=== PATIENT | female | born 1970 | race African-American/Black ===

== ENCOUNTER 2016-12-02 11:19 | Emergency (ER) | payer OTHER ==
[2016-12-02 11:28] VITALS: BP 122/82; PULSE 75; TEMP 98.6; BMI 34.4
--- NOTE | 2016-12-02 12:37 | PDOC ---
History of Present Illness - General Chief Complaint: Allergic Reaction Stated Complaint: ALLERGIES/FOOT INJURY Time Seen by Provider: 12/02/16 12:22 History Source: Patient Exam Limitations: No Limitations - History of Present Illness Initial Comments: 12/02/16 12:31 46 yr female with history of asthma, seasonal allergies presents to ER c/o scratchy throat itchy ears, itchy eyes and asking for a refferal for a drawer in for her bone spur in her right ankle. Severity: mild Past History - Past Medical History Allergies/Adverse Reactions: Allergies Allergy/AdvReac Type Severity Reaction Status Date / Time erythromycin base Allergy Intermediate Hives Verified 12/02/16 11:25 [Erythromycin Base] JACOB, MELON Allergy Severe ITCHY Uncoded 12/02/16 11:25 THROAT. Home Medications: Ambulatory Orders Albuterol Sulfate Inhaler - [Ventolin Hfa Inhaler -] 1 - 2 inh PO Q4H #1 inhaler 05/05/15 Nifedipine 30 mg PO DAILY 02/17/16 Tamoxifen Citrate 20 mg PO DAILY 02/17/16 Cetirizine HCl [Zyrtec -] 10 mg PO DAILY 12/02/16 Cetirizine HCl [Zyrtec -] 10 mg PO DAILY #30 tablet 12/02/16 Olopatadine HCl [Patanol] 1 drop OP DAILY #1 bottle 12/02/16 Asthma: Yes Cancer: Yes (right breast ca) HTN: Yes Psychiatric Problems: Yes (ANXIETY) Suicide Attempt (Hx): No Thyroid Disease: Yes (hyper) - Surgical History Abdominal Surgery: Yes - Immunization History Immunization Up to Date: No - Psycho/Social/Smoking Cessation Hx Anxiety: Yes Suicidal Ideation: No Smoking Status: No Smoking History: Never smoked Number of Cigarettes Smoked Daily: 0 Hx Alcohol Use: No Drug/Substance Use Hx: No Substance Use Type: None Review of Systems - Review of Systems Able to Perform ROS?: Yes Is the patient limited [place] proficient: No Constitutional: No: Symptoms Reported HEENTM: Yes: Symptoms Reported Respiratory: Yes: Symptoms reported, Cough (dry ) Cardiac (ROS): No: Symptoms Reported ABD/GI: No: Symptoms Reported Musculoskeletal: Yes: Symptoms Reported, Other (bone spur pain left ankle ) *Physical Exam - Vital Signs Last Vital Signs Temp Pulse Resp BP Pulse Ox 98.6 F 75 18 122/82 98 12/02/16 11:25 12/02/16 11:25 12/02/16 11:25 12/02/16 11:25 12/02/16 11:25 - Physical Exam General Appearance: Yes: Nourished, Appropriately Dressed HEENT: positive: EOMI, SAÚL, Normal ENT Inspection, TMs Normal, Pharynx Normal Neck: positive: Supple. negative: Tender Respiratory/Chest: positive: Lungs Clear, Normal Breath Sounds. negative: Chest Tender, Wheezing Cardiovascular: positive: Regular Rhythm, Regular Rate Gastrointestinal/Abdominal: positive: Normal Bowel Sounds, Soft Musculoskeletal: positive: Normal Inspection Extremity: positive: Normal Capillary Refill, Normal Inspection, Normal Range of Motion, Tender (left medial malleolus ) Integumentary: positive: Normal Color, Dry, Warm Neurologic: positive: Fully Oriented, Alert, Normal Mood/Affect, Normal Response , Motor Strength 5/5 Medical Decision Making - Medical Decision Making 12/02/16 12:33 cc: seasonal allergies bone spur left ankle vitals stable no fever *DC/Admit/Observation/Transfer Diagnosis at time of Disposition: Bone spur of ankle Seasonal allergies Qualifiers: Allergic rhinitis trigger: pollen Qualified Code(s): J30.1 - Allergic rhinitis due to pollen - Discharge Dispostion Disposition: HOME Condition at time of disposition: Good - Prescriptions Prescriptions: Olopatadine HCl [Patanol] 1 drop OP DAILY #1 bottle Cetirizine HCl [Zyrtec -] 10 mg PO DAILY #30 tablet - Referrals Referrals: Lisandro Martínez MD [Staff Physician] - - Patient Instructions Additional Instructions: take the medication as prescribed follow with ENT allergy for follow up and possible allergy shots that can help with symptoms follow with the poditrist for your bone spur
== END 2016-12-02 12:52 | disposition home or self-care (01) ==
LOC: JERFT 11:19
DX: J30.1 Allergic rhinitis due to pollen (principal); J45.909 Unspecified asthma, uncomplicated; I10 Essential (primary) hypertension; F41.9 Anxiety disorder, unspecified; Z85.3 Personal history of malignant neoplasm of breast
CPT/HCPCS: 99281-25

== ENCOUNTER 2017-11-20 09:17 | Emergency (ER) | payer OTHER ==
[2017-11-20 09:29] VITALS: BP 125/72; PULSE 82; TEMP 98.2; BMI 35.2
--- NOTE | 2017-11-20 09:38 | PDOC ---
History of Present Illness - General Chief Complaint: Asthma Stated Complaint: SOB (ASTHMA) Time Seen by Provider: 11/20/17 09:37 History Source: Patient Exam Limitations: No Limitations - History of Present Illness Initial Comments: 11/20/17 11:07 Patient is an 47-year-old female past medical history of asthma, who presents to emergency department today stating that she has been wheezing recently. She is using her inhaler 3-4 times a day which is more than his usual. She has never been hospitalized or intubated for his asthma. Admits to cough Denies fevers, chills, chest pain, shortness of breath at rest, nausea, vomiting and diarrhea. States they are currently in an apartment were renovations are being done. Past History - Travel Traveled outside of the country in the last 30 days: No Close contact w/someone who was outside of country & ill: No - Past Medical History Allergies/Adverse Reactions: Allergies Allergy/AdvReac Type Severity Reaction Status Date / Time erythromycin base Allergy Intermediate Hives Verified 11/20/17 09:26 [Erythromycin Base] JACOB, MELON Allergy Severe ITCHY Uncoded 11/20/17 09:26 THROAT. Home Medications: Ambulatory Orders Albuterol 0.083% Nebulizer Bella [Ventolin 0.083% Nebulizer Soln -] 1 neb NEB Q4H #20 vial 11/20/17 predniSONE [Deltasone -] 40 mg PO DAILY #8 tablet 11/20/17 Asthma: Yes Cancer: Yes (right breast ca) COPD: No HTN: Yes Psychiatric Problems: Yes (ANXIETY) Thyroid Disease: Yes (hyper) - Surgical History Abdominal Surgery: Yes - Immunization History Immunization Up to Date: No - Suicide/Smoking/Psychosocial Hx Smoking Status: No Smoking History: Never smoked Number of Cigarettes Smoked Daily: 0 Hx Alcohol Use: No Drug/Substance Use Hx: No Substance Use Type: None Review of Systems - Review of Systems Able to Perform ROS?: Yes Comments:: 11/20/17 09:38 CONSTITUTIONAL: Absent: fever, chills, diaphoresis, generalized weakness, malaise, loss of appetite HEENT: Absent: rhinorrhea, nasal congestion, throat pain, throat swelling, difficulty swallowing, mouth swelling, ear pain, eye pain, visual Changes CARDIOVASCULAR: Absent: chest pain, loss of consciousness, palpitations, irregular heart rate, peripheral edema RESPIRATORY: Present: cough, wheezing Absent: shortness of breath, dyspnea with exertion, orthopnea, stridor, hemoptysis GASTROINTESTINAL: Absent: abdominal pain, abdominal distension, nausea, vomiting, diarrhea, constipation, melena, hematochezia GENITOURINARY: Absent: dysuria, frequency, urgency, hesitancy, hematuria, flank pain, genital pain MUSCULOSKELETAL: Absent: myalgia, arthralgia, joint swelling SKIN: Absent: rash, itching, pallor HEMATOLOGIC/IMMUNOLOGIC: Absent: easy bleeding, easy bruising, lymphadenopathy, frequent infections ENDOCRINE: Absent: unexplained weight gain, unexplained weight loss, heat intolerance, cold intolerance NEUROLOGIC: Absent: headache, focal weakness or paresthesias, dizziness, unsteady gait, seizure, mental status changes, bladder or bowel incontinence PSYCHIATRIC: Absent: anxiety, depression, suicidal or homicidal ideation, hallucinations. Is the patient limited British proficient: No *Physical Exam - Vital Signs Last Vital Signs Temp Pulse Resp BP Pulse Ox 98.2 F 82 19 125/72 96 11/20/17 09:26 11/20/17 09:26 11/20/17 09:26 11/20/17 09:26 11/20/17 09:26 - Physical Exam Comments: 11/20/17 09:38 GENERAL: Well developed, well nourished. Awake and alert. No acute distress. HEENT: Normocephalic, atraumatic. PERRLA, EOMI. No conjunctival pallor. Sclera are non- icteric. Moist mucous membranes. Oropharynx is clear. NECK: Supple. Full ROM. No JVD. Carotid pulses 2+ and symmetric, without bruits. No thyromegaly. No lymphadenopathy. CARDIOVASCULAR: Regular rate and rhythm. No murmurs, rubs, or gallops. Distal pulses are 2+ and symmetric. PULMONARY: No evidence of respiratory distress. Lungs clear to auscultation bilaterally with fair aeration to the bases. Dry cough present on respiration. No wheezing, rales or rhonchi. SKIN: Warm and dry. Normal capillary refill. No rashes. No jaundice. NEUROLOGICAL: Alert, awake, appropriate. Cranial nerves 2-12 intact. No deficits to light touch and temperature in face, upper extremities and lower extremities. No motor deficits in the in face, upper extremities and lower extremities. Normoreflexic in the upper and lower extremities. Normal speech. Toes are down- going bilaterally. Gait is normal without ataxia. PSYCHIATRIC: Cooperative. Good eye contact. Appropriate mood and affect. Medical Decision Making - Medical Decision Making 11/20/17 11:09 Patient is a 47-year-old female past medical history of asthma, who presents for increased wheezing and cough. Patient given prednisone and DuoNeb in the emergency department with relief of her symptoms. Repeat lung sounds now with good aeration to the bases. Patient spoke with social group worker regarding the renovations being done around her apartment. We'll discharge home at this time. Return precautions given. Patient understands all discharge instructions and all questions were answered. *DC/Admit/Observation/Transfer Diagnosis at time of Disposition: Asthma Qualifiers: Asthma severity: mild Asthma persistence: intermittent Asthma complication type : with acute exacerbation Qualified Code(s): J45.21 - Mild intermittent asthma with (acute) exacerbation - Discharge Dispostion Disposition: HOME Condition at time of disposition: Stable Admit: No - Prescriptions Prescriptions: Albuterol 0.083% Nebulizer Bella [Ventolin 0.083% Nebulizer Soln -] 1 neb NEB Q4H #20 vial predniSONE [Deltasone -] 40 mg PO DAILY #8 tablet - Referrals Referrals: Reji Tyler MD [Primary Care Provider] - Ramiro Reid MD [Staff Physician] - - Patient Instructions Printed Discharge Instructions: DI for Asthma -- Adult Additional Instructions: Please use either his inhaler or the nebulizer every 4 hours until his symptoms resolve. Please take the steroids 40 mg daily for 4 days starting tomorrow. Air purifier's and humidifiers may help with his symptoms. Please follow-up with your primary care provider this week. Return to the emergency department if he has difficulty breathing, shortness of breath, increased wheezing, fevers, or have any changes in his symptoms. - Post Discharge Activity Forms/Work/School Notes: Back to Work
[2017-11-20] MEDS ORDERED: ALBUTEROL SO4 2.5/IPRATROPIUM 0.5 INH SOL 3 ML VIAL.NEB. NEB ONE (10:02)
[2017-11-20] MEDS ORDERED: predniSONE 20 MG TABLET (UD) PO ONE (10:03)
[2017-11-20] MEDS ORDERED: predniSONE 20 MG TABLET (UD) ONE (10:27)
== END 2017-11-20 11:20 | disposition home or self-care (01) ==
LOC: JERFT 09:17
PROC: 3E0F7GC Introduction of Other Therapeutic Substance into Respiratory Tract, Via Natural or Artificial Opening (ICD-10-PCS; principal; 2017-11-20)
DX: J45.21 Mild intermittent asthma with (acute) exacerbation (principal); J44.9 Chronic obstructive pulmonary disease, unspecified; E05.90 Thyrotoxicosis, unspecified without thyrotoxic crisis or storm; F41.9 Anxiety disorder, unspecified; Z85.3 Personal history of malignant neoplasm of breast
CPT/HCPCS: 94640; 99281-25

== ENCOUNTER 2017-11-27 04:48 | Emergency (ER) | payer OTHER ==
--- NOTE | 2017-11-27 04:58 | PDOC ---
History of Present Illness - General Stated Complaint: DIFFICULTY BREATHING Time Seen by Provider: 11/27/17 04:55 History Source: Patient - History of Present Illness Initial Comments: 11/27/17 05:21 Patient is a 47 year old female with a PMH of Breast CA (s/p resection), HTN Asthma (no hospitalizations/intubations) presents to our ED c/o 2 day h/o dyspnea without chest pain. Endorses non-productive cough and chills, denies fevers. No recorded temperature. Patient denies abdominal pain, nausea/vomiting, diarrhea/constipation, dysuria/ hematuria, recent travel. Allergy: Erythromycin Surgical: R breast resection PMD: Dr. Tyler Past History - Past Medical History Allergies/Adverse Reactions: Allergies Allergy/AdvReac Type Severity Reaction Status Date / Time erythromycin base Allergy Intermediate Hives Verified 11/27/17 05:01 [Erythromycin Base] JACOB, MELON Allergy Severe ITCHY Uncoded 11/27/17 05:01 THROAT. Home Medications: Ambulatory Orders Albuterol 0.083% Nebulizer Bella [Ventolin 0.083% Nebulizer Soln -] 1 neb NEB Q4H #20 vial 11/20/17 predniSONE [Deltasone -] 40 mg PO DAILY #8 tablet 11/20/17 Asthma: Yes Cancer: Yes (right breast ca) COPD: No HTN: Yes Psychiatric Problems: Yes (ANXIETY) Thyroid Disease: Yes (hyper) - Surgical History Abdominal Surgery: Yes - Immunization History Immunization Up to Date: No - Suicide/Smoking/Psychosocial Hx Smoking Status: No Smoking History: Never smoked Number of Cigarettes Smoked Daily: 0 Hx Alcohol Use: No Drug/Substance Use Hx: No Substance Use Type: None Review of Systems - Review of Systems Constitutional: Yes: Chills. No: Fever HEENTM: No: Recent change in vision Respiratory: Yes: Cough, Shortness of Breath. No: Stridor Cardiac (ROS): No: Chest Pain, Lightheadedness, Palpitations, Syncope ABD/GI: No: Constipated, Diarrhea, Nausea, Vomiting : No: Burning, Dysuria *Physical Exam - Physical Exam General Appearance: Yes: Nourished, Obese HEENT: positive: EOMI Neck: positive: Trachea midline, Supple Respiratory/Chest: positive: Lungs Clear Cardiovascular: positive: S1, S2. negative: Edema, JVD, Murmur Gastrointestinal/Abdominal: negative: Distended, Guarding, Tenderness, Hernia, Mass Integumentary: positive: Normal Color, Dry, Warm Neurologic: positive: Fully Oriented, Alert Medical Decision Making - Medical Decision Making 11/27/17 05:25 47 year old female presents with non-productive cough. VS unremarkable. Respiratory, cardiac, abdominal exams benign. Evaluation w/son. Patient ambulatory, tolerating PO intake. Will discharge home with PMD follow-up. *DC/Admit/Observation/Transfer Diagnosis at time of Disposition: Cough - Discharge Dispostion Disposition: HOME Condition at time of disposition: Good - Referrals Referrals: Reji Tyler MD [Primary Care Provider] - - Patient Instructions Printed Discharge Instructions: DI for Cough -- Adult Additional Instructions: Return to the Emergency Department for any new/worsening/concerning symptoms. - Post Discharge Activity
[2017-11-27 05:08] VITALS: BP 117/63; PULSE 97; TEMP 98.5; BMI 34.7
--- NOTE | 2017-11-27 05:45 | PDOC ---
Attending Attestation - Resident Resident Name: Argelia Gates - ED Attending Attestation I have performed the following: I have examined & evaluated the patient, The case was reviewed & discussed with the resident, I agree w/resident's findings & plan, Exceptions are as noted - HPI HPI: 11/27/17 05:43 47y F hx of breast ca, asthma presents with nonproductive cough, w/o fevers, sore throat. mom notes there has been some construction near by and they have been having frequent coughs and this may be related. was recently treated in ED for same sypmtoms with improvement. here now because she wanted to be checked out as her son is also here for same symptoms. on exam pt well apperaing in n odistress pulm exam clear w/o wheezing/rales suspect uri will dc with supportive care returnprecuations were discussed - Physicial Exam PE: 11/27/17 06:00 see above - Medical Decision Making 11/27/17 06:00 see above
== END 2017-11-27 06:32 | disposition home or self-care (01) ==
LOC: JER 04:48
DX: R05 Cough (principal); I10 Essential (primary) hypertension; J45.909 Unspecified asthma, uncomplicated; F41.9 Anxiety disorder, unspecified; E05.90 Thyrotoxicosis, unspecified without thyrotoxic crisis or storm; Z85.3 Personal history of malignant neoplasm of breast
CPT/HCPCS: 99282-25

== ENCOUNTER 2018-01-25 06:56 | Emergency (ER) | payer OTHER ==
[2018-01-25 07:12] VITALS: BP 162/93; PULSE 68; TEMP 98; BMI 35.2
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
[2018-01-25] MEDS ORDERED: DIPHTH,PERTUSS(ACELL),TET 0.5 ML DISP.SYRIN IM ONE (08:18)
== END 2018-01-25 08:16 | disposition home or self-care (01) ==
LOC: JER 06:56
PROC: 3E0234Z Introduction of Serum, Toxoid and Vaccine into Muscle, Percutaneous Approach (ICD-10-PCS; principal; 2018-01-25)
DX: T24.211A Burn of second degree of right thigh, initial encounter (principal); X17.XXXA Contact with hot engines, machinery and tools, initial encounter; Y93.9 Activity, unspecified; Y92.003 Bedroom of unspecified non-institutional (private) residence as the place of occurrence of the external cause; F41.9 Anxiety disorder, unspecified; I10 Essential (primary) hypertension; E07.9 Disorder of thyroid, unspecified; Z85.3 Personal history of malignant neoplasm of breast
CPT/HCPCS: 90471; 90715; 99281-25

== ENCOUNTER 2018-04-17 20:09 | Emergency (ER) | payer OTHER ==
[2018-04-17 20:13] VITALS: BP 128/53; PULSE 96; TEMP 99.4; BMI 37.9
[2018-04-17 21:42] LABS: URINE APPEARANCE CLEAR; URINE BILIRUBIN NEGATIVE (<2.0 mg/dL); URINE COLOR YELLOW; URINE GLUCOSE (UA) NEGATIVE (NEGATIVE); URINE KETONE NEGATIVE (NEGATIVE); URINE LEUK ESTERASE NEGATIVE (NEGATIVE); URINE NITRITE NEGATIVE (NEGATIVE); URINE PROTEIN NEGATIVE (NEGATIVE); URINE UROBILINOGEN NEGATIVE mg/dL (0.2-1.0)
[2018-04-17 21:45] LABS: HCG,QUALITATIVE URINE Negative
--- NOTE | 2018-04-17 21:47 | PDOC ---
History of Present Illness - General Chief Complaint: Lightheaded Stated Complaint: DIZZY Time Seen by Provider: 04/17/18 21:10 History Source: Patient Exam Limitations: No Limitations - History of Present Illness Initial Comments: 04/17/18 21:41 HISTORY OF PRESENT ILLNESS: 47-year-old woman past medical history of hypertension, hypothyroidism, asthma, chronic back pain who is one week status post breast reconstruction and abdominoplasty who presents emergency Department with generalized weakness and lightheadedness starting today. Patient reports subjective fevers at home. Patient Tylenol No. 3 for pain and 1 g of Tylenol prior to arrival. Patient states she had an appointment for follow-up with Dr. Casillas today but missed the appointment due to symptoms. Patient denies headaches, chest pain, shortness of breath, abdominal pain, nausea, vomiting, diarrhea, constipation, dysuria, hematuria. No recent travel or sick contacts. PAST MEDICAL HISTORY: HTN, hypothyroidism, asthma, back pain SURGICAL HISTORY: breast reconstruction 04/11/18, abdominoplasty 04/11/18 ALLERGIES: No known drug allergies Breast surgeon: Dr. Lazo at [facility]- [phone] REVIEW OF SYSTEMS General/Constitutional: Denies fever or chills. Denies weakness, weight change. HEENT: Denies change in vision. Denies ear pain or discharge. Denies sore throat. Cardiovascular: Denies chest pain or shortness of breath. Respiratory: Denies cough, wheezing, or hemoptysis. Gastrointestinal: Denies nausea, vomiting, diarrhea or constipation. Denies rectal bleeding. Genitourinary: Denies dysuria, frequency, or change in urination. Musculoskeletal: Denies joint or muscle swelling or pain. Denies neck or back pain. Skin and breasts: Denies rash or easy bruising. Neurologic: Denies headache, vertigo, loss of consciousness, or loss of sensation. +lightheadedness Psychiatric: Denies depression or anxiety. Endocrine: Denies increased thirst. Denies abnormal weight change. Hematologic/Lymphatic: Denies anemia, easy bleeding, or history of blood clots. Allergic/Immunologic: Denies hives or skin allergy. Denies latex allergy. PHYSICAL EXAM General Appearance: Well-appearing, appropriately dressed. No apparent distress , no intoxication. HEENT: EOMI, PERRLA, normal ENT inspection, normal voice, TMs normal, pharynx normal. No conjunctival pallor. No photophobia, scleral icterus. Neck: Supple. Trachea midline. No tenderness, rigidity, carotid bruit, stridor , lymphadenopathy, or thyromegaly. Respiratory/Chest: Lungs CTAB. No shortness of breath, chest tenderness, respiratory distress, accessory muscle use. No crackles, rales, rhonchi, stridor , wheezing, dullness Cardiovascular: RRR. S1, S2. No JVD, murmur, bradycardia, tachycardia. Vascular Pulses: Dorsalis-Pedis (R): 2+, Dorsalis-Pedis (L): 2+ Gastrointestinal/Abdominal: Normal bowel sounds. Abdomen soft, non-distended. No tenderness or rebound tenderness. No organomegaly, pulsatile mass, guarding, hernia, hepatomegaly, splenomegaly. Lymphatic: No adenopathy, tenderness. Musculoskeletal/Extremities: Normal inspection. FROM of all extremities, normal capillary refill. Pelvis Stable. No CVA tenderness. No tenderness to extremities, pedal edema, swelling, erythema or deformity. Integumentary: right breast incisions c/d/i. No erythema or tenderness. Left breast incisions c/d/i. +tenderness and erythema to incision to underside of left breast. No drainage present. RUPERTO in place with scant serrous drainage. Abdominal incision c/d/i without erythema, discharge or drainage. 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 Fully oriented, alert. Appropriate mood/affect. Motor strength 5/5. No appreciable EOM palsy, facial droop or sensory deficit. 04/18/18 02:39 Past History - Past Medical History Allergies/Adverse Reactions: Allergies Allergy/AdvReac Type Severity Reaction Status Date / Time erythromycin base Allergy Intermediate Hives Verified 04/17/18 20:13 [Erythromycin Base] JACOB, MELON Allergy Severe ITCHY Uncoded 04/17/18 20:13 THROAT. Home Medications: Ambulatory Orders Albuterol 0.083% Nebulizer Bella [Ventolin 0.083% Nebulizer Soln -] 1 neb NEB Q4H #20 vial 11/20/17 Bacitracin - [Bacitracin Topical Ointment -] 1 applic TP BID 7 Days #1 tube Levofloxacin [Levaquin] 500 mg PO DAILY #7 tablet 04/21/18 Acetaminophen with Codeine [Tylenol with Codeine #3 Tablet] 1 each PO Q4H PRN Amlodipine Besylate 5 mg PO DAILY 04/30/18 Atenolol [Tenormin -] 50 mg PO DAILY 04/30/18 Levothyroxine Sodium [Synthroid] 100 mcg PO DAILY 04/30/18 Asthma: Yes Cancer: Yes (right breast ca) COPD: No HTN: Yes Psychiatric Problems: Yes (ANXIETY) Thyroid Disease: Yes (hyper) - Surgical History Abdominal Surgery: Yes - Immunization History Immunization Up to Date: No - Suicide/Smoking/Psychosocial Hx Smoking Status: No Smoking History: Never smoked Have you smoked in the past 12 months: No Number of Cigarettes Smoked Daily: 0 Hx Alcohol Use: No Drug/Substance Use Hx: No Substance Use Type: None *Physical Exam - Vital Signs Last Vital Signs Temp Pulse Resp BP Pulse Ox 99.4 F 96 H 18 128/53 97 04/17/18 20:12 04/17/18 20:12 04/17/18 20:12 04/17/18 20:12 04/17/18 20:12 ED Treatment Course - LABORATORY CBC & Chemistry Diagram: 04/17/18 22:15 04/17/18 22:15 Medical Decision Making - Medical Decision Making 04/17/18 21:47 A/P: 47-year-old woman with lightheadedness for 1 day Or vascular without erythema, lesions or exudates Lungs clear to auscultation bilaterally Abdomen soft nontender nondistended. Bikini line surgical incision is clean and dry and intact without tenderness, erythema or swelling Left breast incisions clean and dry and intact. No tenderness, erythema, swelling or discharge noted Right breast incisions clean and dry and intact. Erythema present to the lateral incision to the underside of the left breast. No discharge or drainage present RUPERTO with minimal drainage noted from left breast DDx infection, arrhythmia, PE although less likely as patient has not had any shortness of breath, chest pain or leg swelling, ACS Labs, EKG, chest x-ray, urine's, contact surgeon once testing is completed 04/17/18 23:34 Bilateral lower extremity ultrasound as read by imaging visual education director: No bilateral lower extremity DVT. Chest x-rays read by me: No focal consolidations or infiltrates present. Cardiomegaly present. Visualized osseous structures are intact. 04/18/18 01:00 Dr. Clifton morales. Awaiting callback at this time. 04/18/18 01:27 Dr. Clifton morales. Awaiting callback at this time. 04/18/18 01:48 Unable to contact the patient's plastic surgeon. I will discharge the patient home with prescription for Bactrim and instructions to follow up with her plastic surgeon as previously planned. Pt is in agreement with this plan. I discussed the physical exam findings, ancillary test results and final diagnoses with the patient. I answered all of the patient's questions. The patient was satisfied with the care received and felt comfortable with the discharge plan and treatment plan. The patient will call their primary care physician within 24 hours to arrange follow-up and will return to the Emergency Department with any new, persistent or worsening symptoms. 04/18/18 02:39 Patient's plastic surgeon called after discharge. I have added Silvadene to her prescriptions at his request. All results relayed to plastic surgeon who agrees with current plan and will follow up with patient in the office. *DC/Admit/Observation/Transfer Diagnosis at time of Disposition: Cellulitis Qualifiers: Site of cellulitis: trunk Site of cellulitis of trunk: unspecified site Qualified Code(s): L03.319 - Cellulitis of trunk, unspecified - Discharge Dispostion Disposition: HOME Condition at time of disposition: Good Decision to Admit order: No - Prescriptions Prescriptions: Levofloxacin [Levaquin] 500 mg PO DAILY #7 tablet - Referrals Referrals: Reji Tyler MD [Primary Care Provider] - - Patient Instructions Additional Instructions: Continue Keflex as previously prescribed. Take Bactrim DS one tablet twice a day for the next 7 days Finish all antibiotics even if you feel better. Apply warm compresses to your breast as needed. Follow up with your surgeon in the next 3 days. Return to emergency department for any worsening pain, drainage, hearing loss, or any other concerns. Thank you very much for choosing us to provide your emergent health care needs. - Post Discharge Activity
[2018-04-17 22:28] LABS: BASO % 0.3 % (0-2.0); EOS % 1.1 % (0-4.5); HEMOGLOBIN 9.7 GM/dL (10.7-15.3); LYMPH % 14.6 % (8-40); MCH 24.7 pg (25.7-33.7); MCHC 32.3 g/dl (32.0-36.0); MEAN CELL VOLUME 76.6 fl (80-96); MONO % 8.3 % (3.8-10.2); NEUT % 75.7 % (42.8-82.8); PLATELET COUNT 319 K/MM3 (134-434); RBC 3.91 M/mm3 (3.60-5.2); RDW 17.5 % (11.6-15.6); WHITE BLOOD COUNT 6.7 K/mm3 (4.0-10.0)
[2018-04-17 22:40] LABS: INR 1.27 (0.83-1.09); PROTHROMBIN TIME (PATIENT) 14.3 SEC (9.7-13.0)
[2018-04-17 22:56] LABS: ALBUMIN 2.7 g/dl (3.4-5.0); ANION GAP 4 MMOL/L (8-16); BILIRUBIN,TOTAL 0.6 mg/dL (0.2-1.0); BLOOD UREA NITROGEN 11 mg/dL (7-18); CHLORIDE 103 mmol/L (98-107); CO2 31 mmol/L (21-32); CREATININE 0.8 mg/dL (0.55-1.02); GLUCOSE,RANDOM 117 mg/dL (74-106); POTASSIUM 4.1 mmol/L (3.5-5.1); SGOT/AST 21 U/L (15-37); SGPT/ALT 22 U/L (13-61); SODIUM 138 mmol/L (136-145)
[2018-04-17 22:57] LABS: ALK PHOS 57 U/L (45-117)
[2018-04-18] MEDS ORDERED: ACETAMINOPHEN 500 MG TABLET (FP) PO ONE (01:15)
[2018-04-18] MEDS ORDERED: SULFAMETHOXAZOLE/TRIMETHOPRIM 800MG/160MG D.S. TABLET PO ONE (01:50)
[2018-04-18] MEDS ORDERED: SULFAMETHOXAZOLE/TRIMETHOPRIM 800MG/160MG D.S. TABLET ONE (01:57)
[2018-04-18] MEDS ORDERED: ACETAMINOPHEN 325 MG TABLET (FP) ONE (01:57)
--- NOTE | 2018-04-18 15:39 | EKG ---
Test Reason : Blood Pressure : / mmHG Vent. Rate : 094 BPM Atrial Rate : 094 BPM P-R Int : 164 ms QRS Dur : 068 ms QT Int : 326 ms P-R-T Axes : 046 -19 -02 degrees QTc Int : 407 ms NORMAL SINUS RHYTHM CANNOT RULE OUT ANTERIOR INFARCT , AGE UNDETERMINED ABNORMAL ECG WHEN COMPARED WITH ECG OF 18-JUL-2013 15:16, NO SIGNIFICANT CHANGE WAS FOUND Confirmed by RAHUL WHITFIELD MD ([id number]) on 04/18/2018 3:39:10 PM Referred By: Confirmed By:RAHUL WHITFIELD MD
== END 2018-04-18 01:53 | disposition home or self-care (01) ==
LOC: JER 20:09
DX: L03.319 Cellulitis of trunk, unspecified (principal); F41.9 Anxiety disorder, unspecified; I10 Essential (primary) hypertension; E07.9 Disorder of thyroid, unspecified; J45.909 Unspecified asthma, uncomplicated
CPT/HCPCS: 36415; 71046-TC-FY; 80053; 81003; 82550; 83605; 84484; 84703; 85025; 85610; 87040; 87070; 87086; 87186; 87205; 93005; 93010; 93970-TC; 99283-25

== ENCOUNTER 2018-04-30 10:12 | Emergency (ER) | payer OTHER ==
[2018-04-30 10:30] VITALS: BMI 36.0
[2018-04-30] MEDS ORDERED: ALBUTEROL SO4 2.5/IPRATROPIUM 0.5 INH SOL 3 ML VIAL.NEB. NEB ONE ×2 (11:04→11:41)
--- NOTE | 2018-04-30 11:20 | PDOC ---
History of Present Illness - General Chief Complaint: Cold Symptoms Stated Complaint: UNDER THE WEATHER FEELIN/FEVER LAST NITE Time Seen by Provider: 04/30/18 10:33 History Source: Patient Exam Limitations: No Limitations - History of Present Illness Initial Comments: 04/30/18 11:06 Pt is a 47yo F with PMH of breast ca, htn, hypothyroidism, seasonal allergies/ asthma presenting to ED because she is "not breathing well". Pt says she thinks it is because of the weather. SOB started yesterday, pt took her inhaler last night, went to bed and woke up short of breath. 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 She says it is on and off feels that way when she's at rest and upon exertion. She has some feelings of lightheadedness, but no palpitations or syncope. She also admits to a dry cough which has been chronic, breast soreness and abdominal soreness since the surgeries. She denies fever/ chills, productive cough, hemoptysis, n/v/d, dysuria, frequency, numbness/ tingling, headache. She saw her plastic surgeon yesterday who extended antibiotic use for 1 more week. She is taking Levaquin. Pt has had a series of surgeries on her R breast with cancer removal and reconstruction. Her recent wound cultures were positive for Klebsiella and Pseudomonas. Currently on her period PMH: see hpi PSH: breast flap surgery 04/11/18 Meds: levaquin, amlodipine, atenolol, levothyroxine, Tylenol #3, albuterol, prednisone Allergies: erythromycin Social: social alcohol use. Denies tobacco, marijuana, illicit drug use Past History - Past Medical History Allergies/Adverse Reactions: Allergies Allergy/AdvReac Type Severity Reaction Status Date / Time erythromycin base Allergy Intermediate Hives Verified 04/17/18 20:13 [Erythromycin Base] JACOB, MELON Allergy Severe ITCHY Uncoded 04/17/18 20:13 THROAT. Home Medications: Ambulatory Orders Albuterol 0.083% Nebulizer Bella [Ventolin 0.083% Nebulizer Soln -] 1 neb NEB Q4H #20 vial 11/20/17 Bacitracin - [Bacitracin Topical Ointment -] 1 applic TP BID 7 Days #1 tube Levofloxacin [Levaquin] 500 mg PO DAILY #7 tablet 04/21/18 Acetaminophen with Codeine [Tylenol with Codeine #3 Tablet] 1 each PO Q4H PRN Amlodipine Besylate 5 mg PO DAILY 04/30/18 Atenolol [Tenormin -] 50 mg PO DAILY 04/30/18 Levothyroxine Sodium [Synthroid] 100 mcg PO DAILY 04/30/18 Asthma: Yes Cancer: Yes (right breast ca) COPD: No HTN: Yes Psychiatric Problems: Yes (ANXIETY) Thyroid Disease: Yes (hyper) - Surgical History Abdominal Surgery: Yes - Immunization History Immunization Up to Date: No - Suicide/Smoking/Psychosocial Hx Smoking Status: No Smoking History: Never smoked Have you smoked in the past 12 months: No Number of Cigarettes Smoked Daily: 0 Information on smoking cessation initiated: No Hx Alcohol Use: No Drug/Substance Use Hx: No Substance Use Type: None Review of Systems - Review of Systems Able to Perform ROS?: Yes Constitutional: No: Chills, Fever, Weakness HEENTM: No: Blurred Vision, Ear Pain, Throat Pain Respiratory: Yes: Cough (chronic dry cough), Shortness of Breath, SOB with Exertion, SOB at Rest. No: Wheezing, Hemoptysis Cardiac (ROS): Yes: Lightheadedness, Other (breast soreness). No: Chest Pain, Palpitations, Syncope ABD/GI: Yes: Other (abdominal soreness). No: Abdominal Distended, Blood Streaked Bowels, Constipated, Diarrhea, Difficulty Swallowing, Nausea, Rectal Bleeding, Vomiting : No: Burning, Dysuria, Frequency Musculoskeletal: No: Joint Pain, Muscle Pain, Muscle Weakness Integumentary: Yes: Other (surical scars on L and R breast, surgical scar across lower abdomen) Neurological: No: Headache, Numbness, Tingling, Tremors, Weakness, Dizziness Hematologic/Lymphatic: No: Blood Clots *Physical Exam - Vital Signs Last Vital Signs Temp Pulse Resp BP Pulse Ox 98.1 F 62 18 115/50 L 100 04/30/18 10:26 04/30/18 10:26 04/30/18 10:56 04/30/18 10:04/30/18 10:56 - Physical Exam General Appearance: Yes: Nourished, Appropriately Dressed. No: Apparent Distress HEENT: positive: EOMI, SAÚL, Normal ENT Inspection, Pharynx Normal. negative: Pale Conjunctivae, Scleral Icterus (R), Scleral Icterus (L), Pharyngeal Erythema , Tonsillar Exudate, Tonsillar Erythema, Rhinorrhea, Sinus Tenderness Neck: positive: Trachea midline, Supple. negative: Tender, Decreased range of motion, Lymphadenopathy (L), Rigidity, Tender midline Respiratory/Chest: positive: Lungs Clear, Normal Breath Sounds. negative: Chest Tender, Respiratory Distress, Accessory Muscle Use, Labored Respiration, Rapid RR, Decreased Breath Sounds, Crackles, Rhonchi, Stridor, Wheezing Cardiovascular: positive: Regular Rhythm, Regular Rate, S1, S2. negative: Edema , JVD, Murmur Vascular Pulses: Carotid (R): 2+, Carotid (L): 2+, Dorsalis-Pedis (R): 2+, Doralis-Pedis (L): 2+ Gastrointestinal/Abdominal: positive: Normal Bowel Sounds, Soft. negative: Tender, Distended, Guarding, Rebound, Tenderness Lymphatic: negative: Adenopathy (no cervical, femoral, axillary LAD) Musculoskeletal: negative: CVA Tenderness, CVA Tenderness (R), CVA Tenderness (L ) Extremity: positive: Normal Capillary Refill, Normal Inspection. negative: Coldness, Pedal Edema, Swelling, Calf Tenderness, Erythema Integumentary: positive: Normal Color, Dry, Warm, Other (Clean, dry, healing surgical scars underneath L breast and across R breast. Clean, dry surgical scar across lower abdomen. R side has packing in place). 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 negative: Numbness, Sensory Deficit ED Treatment Course - LABORATORY CBC & Chemistry Diagram: 04/30/18 11:10 04/30/18 11:10 - RADIOLOGY Radiology Studies Ordered: Category Date Time Status CHEST PA & LAT [RAD] Stat Radiology 04/30/18 11:04 Ordered Medical Decision Making - Medical Decision Making 04/30/18 11:27 Pt is a 47yo F with PMH of breast ca, htn, hypothyroidism, seasonal allergies/ asthma presenting to ED because she is "not breathing well". Pt says she thinks it is because of the weather. Vitals: wnl PE: benign; normal breath sounds, normal heart sounds DDx: viral URI, allergies/asthma, PE, UT, pericarditis, pna, ptx Low suspicion for ptx due to normal vitals and normal breath sounds. Low suspicion for pna because pt is taking levaquin. Most likely viral uri/seasonal however due to recent surgeries will need to rule out PE. -cbc, cmp, ddimer, trop -ekg, cxr EKG: NSR, normal axis, t wave inversions in V1, no ALTHEA or depressions, narrow QRS. 04/30/18 12:47 Labs significant for Hgb 9.8 (9.7 1 week ago, 12 3 years ago). When asked, pt said she has anemia. She thinks her Hgb may be low because last year she had a surgical procedure on her cervix which dropped her hemoglobin to the point where she required iron transfusions. Per pt, her hgb was 4 at one point. Transfusions stopped a couple months ago. RDW is elevated and MCV is low, likely points to iron deficiency anemia which could also explain symptoms however pt not acutely anemic. -WBC 4.0 -D-dimer 1868. Will cancel CXR and order CTA. Pt given fluids -Electrolytes wnl. Cr 0.9 04/30/18 13:46 CT negative for PE. No acute pathology. R breast denisity shown however that is most likely from her surgeries. Pt had episode of emesis after contrast given. 04/30/18 14:04 Pt reported feeling better after nebulizer treatment and no feelings of nausea. Pt expressing desire to go home. hemodynamically stable and asymptomatic. Pt has good follow up. Safe for d/c home. Pt given return precautions and verbalized understanding. *DC/Admit/Observation/Transfer Diagnosis at time of Disposition: Shortness of breath - Discharge Dispostion Disposition: HOME Condition at time of disposition: Improved Decision to Admit order: No - Referrals Referrals: Reji Tyler MD [Primary Care Provider] - - Patient Instructions Printed Discharge Instructions: DI for Shortness of Breath Additional Instructions: You were seen here today because you were feeling short of breath. The blood work showed your hemoglobin was 9.8 which is low, and an elevated D-Dimer however the rest of your blood work and Cat Scan were normal. The most likely cause is a viral infection, like a cold, or your allergies/asthma or possibly even the anemia. Please continue to use your inhaler as needed for wheezing/ shortness of breath. Please follow up with your primary care doctor for symptoms related to the shortness of breath and to check your hemoglobin and follow up with your plastic surgeon for wound care. Please come back to the ED if: shortness of breath gets worse, you develop cough and/or fever, notice new swelling and pain in your legs, you pass out or if any new concerning symptom develops. Thank you - Post Discharge Activity
--- NOTE | 2018-04-30 11:28 | PDOC ---
Attending Attestation - Resident Resident Name: Lisa Ballesteros - ED Attending Attestation I have performed the following: I have examined & evaluated the patient, The case was reviewed & discussed with the resident, I agree w/resident's findings & plan - HPI HPI: 04/30/18 11:17 47-year-old female with history of asthma, hypertension, hypothyroid, breast CA status post resection and revision earlier this month presents with 1 day of shortness of breath. Noted gradual onset of mild shortness of breath over the last 24 hours, occurs both at rest and with exertion but is intermittent, not associated with any chest pain and not pleuritic in nature. No fevers or chills , no palpitations, today began noticing some nasal congestion and sore throat as well. Patient is taking Levaquin for wound infection, was seen here earlier in the month for generalized lightheadedness at which time a bilateral venous Doppler was negative for DVT. No known history of CAD or exertional complaints. - Physicial Exam PE: 04/30/18 11:19 vitals as noted and within normal limits, normal heart rate and O2 sat 99% on room air Obese, otherwise well-appearing and comfortable seated in stretcher. Speaking full sentences. Positive nasal congestion, oropharynx clear without swelling or exudate Neck supple, no JVD Heart is regular without murmurs or ectopy Lungs are clear without wheezing or focally decreased breath sounds - Medical Decision Making 04/30/18 11:20 47-year-old female with history of asthma, seasonal ALLERGIES, hypertension, and recent postop breast surgery revision now with 1 day of shortness of breath. She is well-appearing with normal vital signs and no acute findings on exam. presentation seems most consistent with possible upper respiratory infection versus seasonal ALLERGIES versus mild asthma exacerbation, however given her history will need to rule out ACS or PE. Check labs including troponin and d-dimer EKG and chest x-ray Trial of nebulizer Reassess Heart Score/ECG Review #1 ECG reviewed & interpreted by me at: 11:19 General ECG Interpretation: Sinus Rhythm, Normal Rate (63), Normal Intervals ( qtc 392), No acute ischemic changes (prwp, otherwise normal amplitudes) Compared to previous ECG there are: No significant change (c/w 04/17/18)
[2018-04-30 11:44] LABS: BASO % 0.6 % (0-2.0); EOS % 2.8 % (0-4.5); HEMATOCRIT 31.2 % (32.4-45.2); HEMOGLOBIN 9.8 GM/dL (10.7-15.3); LYMPH % 26.7 % (8-40); MCH 24.5 pg (25.7-33.7); MCHC 31.6 g/dl (32.0-36.0); MEAN CELL VOLUME 77.7 fl (80-96); MEAN PLT VOLUME 7.8 fl (7.5-11.1); MONO % 8.2 % (3.8-10.2); NEUT % 61.7 % (42.8-82.8); PLATELET COUNT 358 K/MM3 (134-434); RBC 4.01 M/mm3 (3.60-5.2)
[2018-04-30 12:01] LABS: INR 1.06 (0.83-1.09)
[2018-04-30 12:04] LABS: ACTIVATED PTT 25.5 SECONDS (25.2-36.5)
[2018-04-30 12:16] LABS: ALBUMIN 2.9 g/dl (3.4-5.0); ALK PHOS 62 U/L (45-117); ANION GAP 10 MMOL/L (8-16); BILIRUBIN,TOTAL 0.3 mg/dL (0.2-1); BLOOD UREA NITROGEN 15 mg/dL (7-18); CALCIUM 8.5 mg/dL (8.5-10.1); CHLORIDE 109 mmol/L (98-107); CO2 23 mmol/L (21-32); CREATININE 0.9 mg/dL (0.55-1.3); GLUCOSE,RANDOM 78 mg/dL (74-106); POTASSIUM 4.5 mmol/L (3.5-5.1); SGOT/AST 16 U/L (15-37); SGPT/ALT 19 U/L (13-61); SODIUM 142 mmol/L (136-145); TOT PROT 6.3 g/dl (6.4-8.2)
[2018-04-30] MEDS ORDERED: SODIUM CHLORIDE 1,000 ML IV ONE (12:30)
[2018-04-30 14:15] VITALS: BP 139/77; PULSE 85; TEMP 98
--- NOTE | 2018-04-30 16:37 | EKG ---
Test Reason : Blood Pressure : / mmHG Vent. Rate : 063 BPM Atrial Rate : 063 BPM P-R Int : 166 ms QRS Dur : 068 ms QT Int : 384 ms P-R-T Axes : 027 -19 000 degrees QTc Int : 392 ms POOR DATA QUALITY, INTERPRETATION MAY BE ADVERSELY AFFECTED NORMAL SINUS RHYTHM CANNOT RULE OUT ANTERIOR INFARCT (CITED ON OR BEFORE 18-APR-2018) ABNORMAL ECG WHEN COMPARED WITH ECG OF 18-APR-2018 00:22, VENT. RATE HAS DECREASED BY 31 BPM Confirmed by MD Ashlyn, Michael ([id number]) on 04/30/2018 4:37:36 PM Referred By: Confirmed By:Michael Goldberg MD
== END 2018-04-30 14:16 | disposition home or self-care (01) ==
LOC: JER 10:12
PROC: 3E0337Z Introduction of Electrolytic and Water Balance Substance into Peripheral Vein, Percutaneous Approach (ICD-10-PCS; principal; 2018-04-30)
PROC: 3E0F7GC Introduction of Other Therapeutic Substance into Respiratory Tract, Via Natural or Artificial Opening (ICD-10-PCS; 2018-04-30)
DX: R06.02 Shortness of breath (principal); I10 Essential (primary) hypertension; J45.909 Unspecified asthma, uncomplicated; J30.2 Other seasonal allergic rhinitis; F41.9 Anxiety disorder, unspecified; Z85.3 Personal history of malignant neoplasm of breast; Z98.890 Other specified postprocedural states
CPT/HCPCS: 36415; 71275-TC; 80053; 84484; 84703; 85025; 85379; 85610; 85730; 93005; 93010; 94640; 96360; 99284-25; J7030; J7620

== ENCOUNTER 2019-02-19 20:14 | Emergency (ER) | payer OTHER ==
[2019-02-19 20:19] VITALS: BP 117/63; PULSE 80; TEMP 97.8; BMI 35.5
--- NOTE | 2019-02-19 21:11 | PDOC ---
History of Present Illness - General Chief Complaint: Rash Stated Complaint: BITES Time Seen by Provider: 02/19/19 20:45 History Source: Patient Exam Limitations: No Limitations - History of Present Illness Initial Comments: 02/19/19 21:06 HISTORY OF PRESENT ILLNESS: 48-year-old woman past medical history of breast cancer status post trans-flap with subsequent reconstruction presents emergency department for evaluation of dry skin around the umbilicus which is been intermittent over the past 6 months. She reports using multiple topical remedies with varying efficacy. She denies any itching, fevers, chills, discharge or drainage from the site. No recent travel or sick contacts. PAST MEDICAL HISTORY: see HPI SURGICAL HISTORY: see HPI ALLERGIES: EES REVIEW OF SYSTEMS General/Constitutional: Denies fever or chills. Denies weakness, weight change. HEENT: Denies change in vision. Denies ear pain or discharge. Denies sore throat. Cardiovascular: Denies chest pain or shortness of breath. Respiratory: Denies cough, wheezing, or hemoptysis. Gastrointestinal: Denies nausea, vomiting, diarrhea or constipation. Denies rectal bleeding. Genitourinary: Denies dysuria, frequency, or change in urination. Musculoskeletal: Denies joint or muscle swelling or pain. Denies neck or back pain. Skin and breasts: see HPI Neurologic: Denies headache, vertigo, loss of consciousness, or loss of sensation. Psychiatric: Denies depression or anxiety. Endocrine: Denies increased thirst. Denies abnormal weight change. Hematologic/Lymphatic: Denies anemia, easy bleeding, or history of blood clots. Allergic/Immunologic: Denies hives or skin allergy. Denies latex allergy. PHYSICAL EXAM General Appearance: Well-appearing, appropriately dressed. No apparent distress , no intoxication. Respiratory/Chest: Lungs CTAB. No shortness of breath, chest tenderness, respiratory distress, accessory muscle use. No crackles, rales, rhonchi, stridor , wheezing, dullness Cardiovascular: RRR. S1, S2. No JVD, murmur, bradycardia, tachycardia. Vascular Pulses: Dorsalis-Pedis (R): 2+, Dorsalis-Pedis (L): 2+ Gastrointestinal/Abdominal: Normal bowel sounds. Abdomen soft, non-distended. No tenderness or rebound tenderness. No organomegaly, pulsatile mass, guarding, hernia, hepatomegaly, splenomegaly. Integumentary: Hyperpigmented periumbilical rash present. No erythema, scaling or discharge present. Past History - Past Medical History Allergies/Adverse Reactions: Allergies Allergy/AdvReac Type Severity Reaction Status Date / Time erythromycin base Allergy Intermediate Hives Verified 02/19/19 20:19 [Erythromycin Base] JACOB, MELON Allergy Severe ITCHY Uncoded 02/19/19 20:19 THROAT. Home Medications: Ambulatory Orders Albuterol 0.083% Nebulizer Bella [Ventolin 0.083% Nebulizer Soln -] 1 neb NEB Q4H #20 vial 11/20/17 Bacitracin - [Bacitracin Topical Ointment -] 1 applic TP BID 7 Days #1 tube Levofloxacin [Levaquin] 500 mg PO DAILY #7 tablet 04/21/18 Acetaminophen with Codeine [Tylenol with Codeine #3 Tablet] 1 each PO Q4H PRN Amlodipine Besylate 5 mg PO DAILY 04/30/18 Atenolol [Tenormin -] 50 mg PO DAILY 04/30/18 Levothyroxine Sodium [Synthroid] 100 mcg PO DAILY 04/30/18 Mometasone Furoate 15 gm TP BID #1 tube 02/19/19 Asthma: Yes Cancer: Yes (right breast ca) COPD: No HTN: Yes Psychiatric Problems: Yes (ANXIETY) Thyroid Disease: Yes (hyper) - Surgical History Abdominal Surgery: Yes - Immunization History Immunization Up to Date: No - Suicide/Smoking/Psychosocial Hx Smoking Status: No Smoking History: Never smoked Have you smoked in the past 12 months: No Number of Cigarettes Smoked Daily: 0 Hx Alcohol Use: No Drug/Substance Use Hx: No Substance Use Type: None *Physical Exam - Vital Signs Last Vital Signs Temp Pulse Resp BP Pulse Ox 97.8 F 80 18 117/63 99 02/19/19 20:16 02/19/19 20:16 02/19/19 20:16 02/19/19 20:16 02/19/19 20:16 Medical Decision Making - Medical Decision Making 02/19/19 21:09 A/P: 48-year-old woman with periumbilical dermatitis Discharge home with prescription for Elocon ointment and recommendation to follow-up with dermatology. *DC/Admit/Observation/Transfer Diagnosis at time of Disposition: Dermatitis - Discharge Dispostion Disposition: HOME Condition at time of disposition: Stable Decision to Admit order: No - Prescriptions Prescriptions: Mometasone Furoate 15 gm TP BID #1 tube - Referrals Referrals: Reji Tyler MD [Primary Care Provider] - Elisabet Dave MD [Staff Physician] - Soham Le [Non Staff, Medical] - - Patient Instructions Additional Instructions: Rest, keep cool and dry- avoid strenuous activity or hot /humid environments Less hot showers, no abrasive soaps May use heavy creams like Eucerin or Cetaphil to keep skin moist May apply Aveeno, calamine lotion, [id number] hydrocortisone creams as needed for symptoms May use Benadryl at night for antihistamine, Zyrtec/ Kari or Claritin for daytime antihistamine use to help with itching Use mometisone cream on all areas except face Try to identify cause for rash and avoid exposures Followup with PMD in one week if no resolution Make appointment with advisory intern for evaluation when possible - Post Discharge Activity
== END 2019-02-19 21:31 | disposition home or self-care (01) ==
LOC: JERFT 20:14
DX: L30.9 Dermatitis, unspecified (principal); I10 Essential (primary) hypertension; F41.9 Anxiety disorder, unspecified; E07.9 Disorder of thyroid, unspecified; Z85.3 Personal history of malignant neoplasm of breast; J45.909 Unspecified asthma, uncomplicated
CPT/HCPCS: 99281-25

== ENCOUNTER 2019-04-30 14:18 | Emergency (ER) | payer OTHER ==
[2019-04-30 14:27] VITALS: BP 132/70; PULSE 72; TEMP 98.1; BMI 35.7
[2019-04-30] MEDS ORDERED: ACETAMINOPHEN 500 MG TABLET (FP) PO ONE (14:27)
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
[2019-04-30] MEDS ORDERED: METHOCARBAMOL 500 MG TABLET PO ONE (16:08)
[2019-04-30] MEDS ORDERED: NAPROXEN 500 MG TABLET (FP) PO ONE (16:08)
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
[2019-04-30] MEDS ORDERED: NAPROXEN 500 MG TABLET (FP) ONE (16:15)
[2019-04-30] MEDS ORDERED: METHOCARBAMOL 500 MG TABLET ONE (16:16)
== END 2019-04-30 16:29 | disposition home or self-care (01) ==
LOC: JERFT 14:18
DX: S63.509A Unspecified sprain of unspecified wrist, initial encounter (principal); S29.012A Strain of muscle and tendon of back wall of thorax, initial encounter; J45.909 Unspecified asthma, uncomplicated; Z85.3 Personal history of malignant neoplasm of breast; I10 Essential (primary) hypertension; F41.9 Anxiety disorder, unspecified; E07.9 Disorder of thyroid, unspecified
CPT/HCPCS: 99281-25

== ENCOUNTER 2019-08-04 11:35 | Emergency (ER) | payer OTHER ==
[2019-08-04 11:44] VITALS: PULSE 72; TEMP 97.8; BMI 35.7
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
[2019-08-04] MEDS ORDERED: ACETAMINOPHEN 1000 MG/100 ML VIAL (NON FORMULARY) IVPB ONE (12:36)
[2019-08-04] MEDS ORDERED: ALBUTEROL SO4 2.5/IPRATROPIUM 0.5 INH SOL 3 ML VIAL.NEB. NEB ONE ×2 (12:39→12:53)
[2019-08-04] MEDS ORDERED: ACETAMINOPHEN INJECTION 100 ML IVPB ONE (12:54)
[2019-08-04 13:22] LABS: BASO % 0.5 % (0-2.0); HEMATOCRIT 28.3 % (32.4-45.2); HEMOGLOBIN 8.4 GM/dL (10.7-15.3); LYMPH % 24.3 % (8-40); MCH 21.1 pg (25.7-33.7); MCHC 29.8 g/dl (32.0-36.0); MEAN CELL VOLUME 71.1 fl (80-96); MEAN PLT VOLUME 8.3 fl (7.5-11.1); MONO % 8.4 % (3.8-10.2); NEUT % 62.8 % (42.8-82.8); PLATELET COUNT 326 K/MM3 (134-434); RBC 3.98 M/mm3 (3.60-5.2); RDW 19.1 % (11.6-15.6); WHITE BLOOD COUNT 4.9 K/mm3 (4.0-10.0)
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
[2019-08-04 15:00] LABS: ANISOCYTOSIS 1+; MACROCYTOSIS 0; PLATELET ESTIMATE NORMAL; TEAR DROP CELLS 1+
[2019-08-04] MEDS ORDERED: ONDANSETRON 4 MG/2 ML VIAL IVPUSH ONE (15:53)
[2019-08-04] MEDS ORDERED: GABAPENTIN 100 MG CAPSULE (FP) PO ONE (17:03)
[2019-08-04] MEDS ORDERED: GABAPENTIN 100 MG CAPSULE (FP) ONE (17:08)
[2019-08-04] MEDS ORDERED: ONDANSETRON 4 MG/2 ML VIAL ONE (17:08)
[2019-08-04 17:47] LABS: ALBUMIN 3.2 g/dl (3.4-5.0); BILIRUBIN,TOTAL 0.3 mg/dL (0.2-1); BLOOD UREA NITROGEN 11.5 mg/dL (7-18); CALCIUM 8.6 mg/dL (8.5-10.1); CREATININE 0.9 mg/dL (0.55-1.3); TOT PROT 6.3 g/dl (6.4-8.2)
[2019-08-04 18:30] VITALS: BP 125/68
--- NOTE | 2019-08-05 10:18 | EKG ---
Test Reason : Blood Pressure : / mmHG Vent. Rate : 063 BPM Atrial Rate : 063 BPM P-R Int : 180 ms QRS Dur : 086 ms QT Int : 402 ms P-R-T Axes : 021 -22 000 degrees QTc Int : 411 ms NORMAL SINUS RHYTHM MINIMAL VOLTAGE CRITERIA FOR LVH, MAY BE NORMAL VARIANT POSSIBLE ANTERIOR INFARCT (CITED ON OR BEFORE 18-APR-2018) ABNORMAL ECG WHEN COMPARED WITH ECG OF 30-APR-2018 11:19, NO SIGNIFICANT CHANGE WAS FOUND Confirmed by MD Ashlyn, Michael ([id number]) on 08/05/2019 10:17:28 AM Referred By: Confirmed By:Michael Goldberg MD
== END 2019-08-04 18:31 | disposition home or self-care (01) ==
LOC: JER 11:35
PROC: 3E0F7GC Introduction of Other Therapeutic Substance into Respiratory Tract, Via Natural or Artificial Opening (ICD-10-PCS; principal; 2019-08-04)
PROC: 3E033NZ Introduction of Analgesics, Hypnotics, Sedatives into Peripheral Vein, Percutaneous Approach (ICD-10-PCS; 2019-08-04)
PROC: 3E033GC Introduction of Other Therapeutic Substance into Peripheral Vein, Percutaneous Approach (ICD-10-PCS; 2019-08-04)
DX: T75.4XXA Electrocution, initial encounter (principal); W86.0XXA Exposure to domestic wiring and appliances, initial encounter; Y93.89 Activity, other specified; Y92.031 Bathroom in apartment as the place of occurrence of the external cause; Y99.8 Other external cause status; I10 Essential (primary) hypertension; E03.9 Hypothyroidism, unspecified; D64.9 Anemia, unspecified; J45.909 Unspecified asthma, uncomplicated; Z85.3 Personal history of malignant neoplasm of breast; Z88.1 Allergy status to other antibiotic agents; Z91.013 Allergy to seafood
CPT/HCPCS: 36415; 70450-TC; 73610-TC-LT-FY; 73630-TC-LT; 80053; 85025; 93005; 93010; 94640; 96374; 96375; 99285-25; J0131

== ENCOUNTER 2020-02-19 19:23 | Emergency (ER) | payer OTHER ==
[2020-02-19 19:40] VITALS: BMI 36.6
[2020-02-19] MEDS ORDERED: SODIUM CHLORIDE 1,000 ML IV STA (19:53)
--- NOTE | 2020-02-19 19:53 | PDOC ---
Rapid Medical Evaluation Chief Complaint: Pain Time Seen by Provider: 02/19/20 19:32 Medical Evaluation: Allergies Allergy/AdvReac Type Severity Reaction Status Date / Time erythromycin base Allergy Intermediate Hives Verified 08/04/19 11:41 [Erythromycin Base] JACOB, MELON Allergy Severe ITCHY Uncoded 08/04/19 11:41 THROAT. Vital Signs Temp Pulse Resp BP Pulse Ox 98.5 F 70 19 132/73 99 02/19/20 19:35 02/19/20 19:35 02/19/20 19:35 02/19/20 19:35 02/19/20 19:35 02/19/20 19:52 I have performed a brief in-person evaluation of this patient. CC: LLQ pain x2 years worse over 2 weeks PE: Abd SNTND. Orders: abd w/u. Imaging deferred to ED provider. Patient will proceed to ED for further evaluation. Discharge Disposition - Diagnosis LLQ pain - Discharge Dispostion Last Admission D/C Date: 11/07/11 - Referrals - Patient Instructions - Post Discharge Activity
--- NOTE | 2020-02-19 20:05 | PDOC ---
History of Present Illness - History of Present Illness Initial Comments: 02/19/20 20:05 49yF w significant abdominal surgeries and PMHx breast ca s/p resection, HTN, hypothyroidism, asthma, anemia presenting w muscle trembling and left lower quadrant pain. She had reconstructive surgery done one year ago which requires removing abdominal muscles to reconstruct the breast muscle. Ever Since the surgery, she had muscle trembling around the abdominal area. However, it got so bad for the past 2 weeks. She had difficulty sleeping due to muscle trembling. Nothing made it better. She denies fever, N/V/D, headache, vision changes, SOB, chest pain, extremity swelling. She endorses abdominal pain. Pain is sore in nature, 7/10 in pain scale, no radiation. localize around the left umbilicus. PMH: reast ca s/p resection, HTN, hypothyroidism, asthma, anemia PSH: 3 section, breast reconstructive surgery using abdominal muscle ( 1 year ago) Med: home med SS: neg for alcohol, drugs, smoking. sexually active with condom use Fam: Tyler Allergy: Azirthromycin, melon LMP: 01/19/2020 ROS: GENERAL/CONSTITUTIONAL: No fever or chills. No weakness. HEAD, EYES, EARS, NOSE AND THROAT: No change in vision. No ear pain or discharge. No sore throat. CARDIOVASCULAR: No chest pain or shortness of breath RESPIRATORY: No cough, wheezing, or hemoptysis. GASTROINTESTINAL: No nausea, vomiting, diarrhea or constipation. Belly pain. GENITOURINARY: No dysuria, frequency, or change in urination. MUSCULOSKELETAL: No joint or muscle swelling or pain. No neck or back pain. SKIN: No rash NEUROLOGIC: No headache, vertigo, loss of consciousness, or change in strength/sensation. ENDOCRINE: No increased thirst. No abnormal weight change HEMATOLOGIC/LYMPHATIC: No anemia, easy bleeding, or history of blood clots. ALLERGIC/IMMUNOLOGIC: No hives or skin allergy. PE GENERAL: Awake, alert, and fully oriented, in mild acute distress. bouncing back and forth. HEAD: No signs of trauma, normocephalic, atraumatic EYES: PERRLA, EOMI, sclera anicteric, conjunctiva clear ENT: Auricles normal inspection, hearing grossly normal, nares patent, oropharynx clear without exudates. Moist mucosa NECK: Normal ROM, supple, no lymphadenopathy, JVD, or masses LUNGS: No distress, speaks full sentences, clear to auscultation bilaterally HEART: Regular rate and rhythm, normal S1 and S2, no murmurs, rubs or gallops, peripheral pulses normal and equal bilaterally. ABDOMEN: Soft, nontender, normoactive bowel sounds. No guarding, no rebound. No masses. No hernia. Horizontal scar EXTREMITIES : Normal inspection, Normal range of motion, no edema. No clubbing or cyanosis. NEUROLOGICAL: Cranial nerves II through XII grossly intact. Normal speech, normal gait, no focal sensorimotor deficits SKIN: Warm, Dry, normal turgor, no rashes or lesions noted 02/19/20 21:15 <Tommy Nicole - Last Filed: 02/20/20 01:52> <Taqueria Betancourt - Last Filed: 02/20/20 02:00> - General Chief Complaint: Pain Stated Complaint: ABD PAIN Time Seen by Provider: 02/19/20 19:32 Past History - Medical History Asthma: Yes Cancer: Yes (right breast ca) COPD: No HTN: Yes Psychiatric Problems: Yes (ANXIETY) Thyroid Disease: Yes (hyper) - Surgical History Abdominal Surgery: Yes - Immunization History Immunization Up to Date: No - Psycho-Social/Smoking History Smoking Status: No Smoking History: Never smoked Have you smoked in the past 12 months: No Number of Cigarettes Smoked Daily: 0 - Substance Abuse Hx (Audit-C & DAST Scrn) How often the patient has a drink containing alcohol: Monthly or less Number of drinks the patient has on a typical day: 1 or 2 How often the patient has six or more drinks on one occasion: Less than monthly Score: In Men: 4 or > Positive; In Women: 3 or > Positive: 2 Screen Result (Pos requires Nsg. Audit-10AR): Negative In the last yr the pt used illegal drug/Rx for NonMed reason: No Score: Yes response is considered Positive: 0 Screen Result (Positive result requires Nsg. DAST-10): Negative <Tommy Nicole - Last Filed: 02/20/20 01:52> <Taqueria Betancourt - Last Filed: 02/20/20 02:00> - Medical History Allergies/Adverse Reactions: Allergies Allergy/AdvReac Type Severity Reaction Status Date / Time erythromycin base Allergy Intermediate Hives Verified 02/19/20 21:58 [Erythromycin Base] JACOB, MELON Allergy Severe ITCHY Uncoded 02/19/20 21:58 THROAT. Home Medications: Ambulatory Orders Amlodipine Besylate [Norvasc -] 5 mg PO DAILY 08/04/19 Atenolol [Tenormin -] 50 mg PO BID 08/04/19 Gabapentin 100 mg PO DAILY 10 Days #10 capsule 08/04/19 Levothyroxine [Synthroid -] 100 mcg PO DAILY 08/04/19 Albuterol Sulfate Inhaler - [Ventolin HFA Inhaler -] 1 - 2 inh PO Q4H #1 inhaler 11/01/19 Guaifenesin [Robitussin] 10 ml PO Q6H #200 ml 11/01/19 Levothyroxine Sodium [Synthroid] 137 mcg PO 02/19/20 *Physical Exam - Vital Signs Last Vital Signs Temp Pulse Resp BP Pulse Ox 98.5 F 70 19 132/73 99 02/19/20 19:35 02/19/20 19:35 02/19/20 19:35 02/19/20 19:35 02/19/20 19:35 <Tommy Nicole - Last Filed: 02/20/20 01:52> - Vital Signs Last Vital Signs Temp Pulse Resp BP Pulse Ox 98.5 F 70 19 132/73 99 02/19/20 19:35 02/19/20 19:35 02/19/20 19:35 02/19/20 19:35 02/19/20 19:35 <Taqueria Betancourt - Last Filed: 02/20/20 02:00> ED Treatment Course - LABORATORY CBC & Chemistry Diagram: 02/19/20 20:42 02/19/20 20:42 <Tommy Nicole - Last Filed: 02/20/20 01:52> - LABORATORY CBC & Chemistry Diagram: 02/19/20 20:42 02/19/20 20:42 - ADDITIONAL ORDERS Additional order review: Laboratory Results 02/19/20 02/19/20 20:42 20:40 Sodium 139 Potassium 4.1 Chloride 106 Carbon Dioxide 26 Anion Gap 7 L BUN 12.7 Creatinine 0.9 Est GFR (CKD-EPI)AfAm 87.02 Est GFR (CKD-EPI)NonAf 75.08 Random Glucose 88 Calcium 9.2 Total Bilirubin 0.5 AST 16 ALT 22 Alkaline Phosphatase 61 Total Protein 7.2 Albumin 3.5 Lipase 133 Urine Color Yellow Urine Appearance Clear Urine pH 6.5 D Ur Specific [place] 1.021 Urine Protein Negative Urine Glucose (UA) Negative Urine Ketones Negative Urine Blood Negative Urine Nitrite Negative Urine Bilirubin Negative Urine Urobilinogen 0.2 Ur Leukocyte Esterase Negative Urine HCG, Qual Negative 02/19/20 20:42 RBC 4.96 MCV 80.4 MCHC 32.4 RDW 18.1 H MPV 8.0 Neutrophils % 61.1 Lymphocytes % 28.6 Monocytes % 8.2 Eosinophils % 1.7 Basophils % 0.4 - RADIOLOGY Radiology Studies Ordered: Category Date Time Status TRANSVAGINAL ULTRASOUND US [US] Stat Ultrasound 02/20/20 00:29 Taken - Medications Given in the ED: ED Medications Discontinued Medications Generic Name Dose Route Start Last Admin Trade Name Freq PRN Reason Stop Dose Admin Acetaminophen 1,000 mg 02/19/20 20:57 02/19/20 21:21 Ofirmev Injection - IVPB 02/19/20 20:58 1,000 mg ONCE ONE Administration Sodium Chloride 1,000 mls @ 1,000 mls/hr 02/19/20 19:53 02/19/20 21:21 Normal Saline - IV 02/19/20 20:52 1,000 mls/hr ASDIR STA Administration <Taqueria Betancourt - Last Filed: 02/20/20 02:00> Medical Decision Making - Medical Decision Making 02/19/20 21:17 EKG : normal rate and rhythm. Normal sinus rhythm. P waves with every QRS. Normal [facility] . No ST changes. Compared to the previous EKG from 07/2019. Lab was normal. UA normal 02/20/20 00:30 CT abdomen and pelvis with contrast reveal: no acute intra abdominal or intrapelvic process septated versus 2 adjacent cysts measuring 3.8 cm in max diameter. Retroflexed urterus with suggesiton of endometrial thickening versus fluid. suggest clinical correlation and consider ultrasound as clinically warranted. Will order transvaginal ultrasound. Transvaginal U/S reveals mildly thickned endometrium whih can be reevaluated with a 6 weeks follow up U/S. Small fibroid, and 3.2 cm right ovarian cyst without torsion or free fluid. Pain was reassessed after fluid and medication. Patient is improved and stable. <Tommy Nicole - Last Filed: 02/20/20 01:52> Discharge - Discharge Information Problems reviewed: Yes - Admission No <Tommy Nicole - Last Filed: 02/20/20 01:52> <Taqueria Betancourt - Last Filed: 02/20/20 02:00> - Discharge Information Clinical Impression/Diagnosis: LLQ pain Ovarian cyst Qualifiers: Laterality: right Qualified Code(s): N83.201 - Unspecified ovarian cyst, right side Condition: Improved Disposition: HOME - Follow up/Referral Referrals: Tricia Munson MD [Staff Physician] - Isai Guerrero MD [Staff Physician] - [facility] [place] [facility] [place] [Provider Group] - Patient Discharge Instructions Patient Printed Discharge Instructions: DI for Ovarian Cyst, DI for Musculoskeletal Pain Additional Instructions: Patient comes in for abdominal pain. We did basic lab work, CT scan and Ultrasound of the abdominal and pelvis. Patient is recommended to follow up with [facility] for the thickened endometrium and ovarian cysts found on Ultrasound. If patient is experienced worsening symptoms of abdominal pain, intractable vomitting, nausea, chest pain, vaginal bleeding, please come back to the ED for further evaluation. If given obgyn referral is not available, please see Primary care doctor for own referral.
[2020-02-19 20:57] LABS: PH,URINE 6.5 (5.0-8.0); URINE APPEARANCE CLEAR; URINE BILIRUBIN NEGATIVE (NEGATIVE); URINE COLOR YELLOW; URINE GLUCOSE (UA) NEGATIVE (NEGATIVE); URINE KETONE NEGATIVE (NEGATIVE); URINE LEUK ESTERASE NEGATIVE (NEGATIVE); URINE NITRITE NEGATIVE (NEGATIVE); URINE PROTEIN NEGATIVE (NEGATIVE); URINE UROBILINOGEN 0.2 mg/dL (0.2-1.0)
[2020-02-19] MEDS ORDERED: ACETAMINOPHEN 1000 MG/100 ML VIAL (NON FORMULARY) IVPB ONE (20:57)
[2020-02-19 20:59] LABS: HCG,QUALITATIVE URINE Negative
[2020-02-19] MEDS ORDERED: ACETAMINOPHEN INJECTION 100 ML IVPB ONE (21:04)
[2020-02-19 21:20] LABS: BASO % 0.4 % (0-2.0); EOS % 1.7 % (0-4.5); HEMATOCRIT 39.9 % (32.4-45.2); HEMOGLOBIN 12.9 GM/dL (10.7-15.3); LYMPH % 28.6 % (8-40); MCH 26.1 pg (25.7-33.7); MCHC 32.4 g/dl (32.0-36.0); MEAN CELL VOLUME 80.4 fl (80-96); MONO % 8.2 % (3.8-10.2); NEUT % 61.1 % (42.8-82.8); PLATELET COUNT 261 K/MM3 (134-434); RBC 4.96 M/mm3 (3.60-5.2); RDW 18.1 % (11.6-15.6); WHITE BLOOD COUNT 5.3 K/mm3 (4.0-10.0)
--- NOTE | 2020-02-19 21:25 | PDOC ---
Documentation entered by Brooke Miramontes SCRIBE, acting as scribe for Jeniffer Boyd DO. Jeniffer Boyd DO: This documentation has been prepared by the chela, Brooke Miramontes SCRIBE, under my direction and personally reviewed by me in its entirety. I confirm that the documentation accurately reflects all work, treatment, procedures, and medical decision making performed by me. Attending Attestation - Resident Resident Name: NicoleTommy - ED Attending Attestation I have performed the following: I have examined & evaluated the patient, The case was reviewed & discussed with the resident, I agree w/resident's findings & plan, Exceptions are as noted - HPI HPI: 02/19/20 20:33 Patient is a 49 year old female with a significant past medical history of abdominal surgeries, hypothyroidism, hypertension, chronic disc issues in back, asthma, anemia, uterine fibroids, lumbar radiculopathy, breast cancer, s/p right side lumpectomy (November 2013), and 3 section, breast reconstructive surgery using abdominal muscle ( 1 year ago), who presents to the ED with left lower quadrant abdominal pain and muscle trembling x 2 weeks. Patient stated she has had muscle trembling ever since her surgery but that it has gotten worse over the past 2 weeks to the point where she is losing sleep. Patient said nothing makes the pain better. Patient said she is currently experiencing "sore" and non radiating abdominal pain with a pain level of 7/10. Patient denies: headache, fever, any changes in vision, nausea, vomiting, SOB, chest pain, diarrhea, any edema in extremities, alcohol intake, smoking, drug use Allergies: Erythromycin base, kelly, melon - Physicial Exam PE: 02/19/20 21:22 Gen: aaox3, nad heart: +s1s2 reg lungs: cta b/l abd: soft, pinpoint ttp to the L distal umbilicus, no rebound or guarding, well healed incisions, no hernia palpated, no rashes ext: no c/c/e - Medical Decision Making 02/19/20 21:25 a/p: 49yo female with LLQ abd pain -hx of reconstructive breast sx from breast ca -well healed incisions, but hx of hernia in the past -no n/v/d or constipation -pain that is worsening, pinpoint pain -will send for ct abd/pelvis, labs -will monitor and reassess 02/19/20 22:18 no acute findings on labs or urine 02/20/20 00:[address] imaging 02/20/20 00:08 labs reviewed and nonacute Heart Score/ECG Review - ECG Intrepretation Comment:: 02/19/20 21:23 sinus at 61, LVH, t wave inversions III which are nonspecific, no acute st/t wave findings, L henderson axis Discharge - Discharge Information Problems reviewed: Yes Clinical Impression/Diagnosis: LLQ pain - Follow up/Referral - Patient Discharge Instructions - Post Discharge Activity
[2020-02-19 21:40] LABS: ALBUMIN 3.5 g/dl (3.4-5.0); BILIRUBIN,TOTAL 0.5 mg/dL (0.2-1); BLOOD UREA NITROGEN 12.7 mg/dL (7-18); CALCIUM 9.2 mg/dL (8.5-10.1); CREATININE 0.9 mg/dL (0.55-1.3); POTASSIUM 4.1 mmol/L (3.5-5.1); TOT PROT 7.2 g/dl (6.4-8.2)
[2020-02-20 02:14] VITALS: BP 145/91; PULSE 71; TEMP 97.2
--- NOTE | 2020-02-20 10:22 | EKG ---
Test Reason : Blood Pressure : / mmHG Vent. Rate : 061 BPM Atrial Rate : 061 BPM P-R Int : 176 ms QRS Dur : 084 ms QT Int : 404 ms P-R-T Axes : 033 -28 -01 degrees QTc Int : 406 ms NORMAL SINUS RHYTHM MINIMAL VOLTAGE CRITERIA FOR LVH, MAY BE NORMAL VARIANT CANNOT RULE OUT ANTERIOR INFARCT (CITED ON OR BEFORE 18-APR-2018) ABNORMAL ECG WHEN COMPARED WITH ECG OF 04-AUG-2019 11:47, NO SIGNIFICANT CHANGE WAS FOUND Confirmed by TORIE ARAMBULA MD ([id number]) on 02/20/2020 10:22:28 AM Referred By: Confirmed By:TORIE ARAMBULA MD
== END 2020-02-20 02:14 | disposition home or self-care (01) ==
LOC: JER 19:23
PROC: 3E0333Z Introduction of Anti-inflammatory into Peripheral Vein, Percutaneous Approach (ICD-10-PCS; principal; 2020-02-19)
PROC: 3E0337Z Introduction of Electrolytic and Water Balance Substance into Peripheral Vein, Percutaneous Approach (ICD-10-PCS; 2020-02-19)
DX: N83.201 Unspecified ovarian cyst, right side (principal)
CPT/HCPCS: 36415; 74177-TC; 76830-TC; 80053; 81003; 83690; 84703; 85025; 87086; 93005; 93010; 99285-25; J0131

== ENCOUNTER 2020-12-03 10:55 | Emergency (ER) | payer OTHER ==
[2020-12-03 11:16] VITALS: TEMP 97.8; BMI 35.5
[2020-12-03 11:17] VITALS: BP 143/92; PULSE 80
== END 2020-12-03 12:29 | disposition home or self-care (01) ==
LOC: JERFT 10:55
DX: J30.2 Other seasonal allergic rhinitis (principal)
CPT/HCPCS: 99283-25

== ENCOUNTER 2021-04-07 18:43 | Emergency (ER) | payer OTHER ==
[2021-04-07 19:13] VITALS: BMI 36.6
[2021-04-07] MEDS ORDERED: ACETAMINOPHEN 325 MG TABLET (FP) PO ONE (19:59)
[2021-04-07] MEDS ORDERED: ACETAMINOPHEN 325 MG TABLET (FP) ONE (20:05)
[2021-04-07] MEDS ORDERED: CYCLOBENZAPRINE HCL 10 MG TABLET (FP) ONE (20:19)
[2021-04-07] MEDS ORDERED: CYCLOBENZAPRINE HCL 10 MG TABLET (FP) PO ONE (20:28)
[2021-04-07] MEDS ORDERED: KETOROLAC TROMETHAMINE 30 MG/1 ML VIAL IM ONE (22:40)
[2021-04-07] MEDS ORDERED: KETOROLAC TROMETHAMINE 30 MG/1 ML VIAL ONE (22:41)
[2021-04-07 23:37] VITALS: BP 160/95; PULSE 75; TEMP 97.9
[2021-04-08] MEDS ORDERED: CYCLOBENZAPRINE HCL 5 MG TABLET PO ONE (20:08)
== END 2021-04-08 | disposition home or self-care (01) ==
LOC: JER 18:43
PROC: 3E023GC Introduction of Other Therapeutic Substance into Muscle, Percutaneous Approach (ICD-10-PCS; principal; 2021-04-07)
DX: M54.42 Lumbago with sciatica, left side (principal); V49.40XA Driver injured in collision with unspecified motor vehicles in traffic accident, initial encounter
CPT/HCPCS: 36415; 70450-TC; 72125-TC; 72131-TC; 84703; 99284-25

== ENCOUNTER 2021-12-04 14:07 | Emergency (ER) | payer OTHER ==
[2021-12-04 14:18] VITALS: BP 151/77; PULSE 81; TEMP 97.8; BMI 36.6
[2021-12-04] MEDS ORDERED: BACITRACIN 15 GM TUBE TOPICAL OINTMENT TP ONE (14:44)
[2021-12-04] MEDS ORDERED: KETOROLAC TROMETHAMINE 30 MG/1 ML VIAL IM ONE (14:45)
[2021-12-04] MEDS ORDERED: DIPHTH,PERTUSS(ACELL),TET 0.5 ML DISP.SYRIN IM ONE ×2 (14:45→15:13)
[2021-12-04] MEDS ORDERED: BACITRACIN 0.9 GM PACKET ONE (14:45)
[2021-12-04] MEDS ORDERED: BACITRACIN 15 GM TUBE TOPICAL OINTMENT ONE (14:46)
[2021-12-04] MEDS ORDERED: KETOROLAC TROMETHAMINE 30 MG/1 ML VIAL ONE (15:13)
== END 2021-12-04 15:21 | disposition home or self-care (01) ==
LOC: JERFT 14:07 → JER 14:07 → JERFT 15:21
PROC: 3E0234Z Introduction of Serum, Toxoid and Vaccine into Muscle, Percutaneous Approach (ICD-10-PCS; principal; 2021-12-04)
PROC: 3E023GC Introduction of Other Therapeutic Substance into Muscle, Percutaneous Approach (ICD-10-PCS; principal; 2021-12-04)
DX: T21.21XA Burn of second degree of chest wall, initial encounter (principal); X19.XXXA Contact with other heat and hot substances, initial encounter
CPT/HCPCS: 90471; 90715; 96372; 99284-25

== ENCOUNTER 2022-02-27 11:08 | Emergency (ER) | payer OTHER ==
[2022-02-27 11:24] VITALS: BP 142/92; PULSE 89; RESP 18; TEMP 98.2; BMI 37.7
[2022-02-27 13:53] LABS: BASO % 0.9 % (0-2.0); EOS % 5.3 % (0-4.5); HEMATOCRIT 43.2 % (32.4-45.2); LYMPH % 28.4 % (8-40); MCH 27.3 pg (25.7-33.7); MCHC 32.5 g/dl (32.0-36.0); MEAN CELL VOLUME 84.2 fl (80-96); MONO % 7.9 % (3.8-10.2); NEUT % 57.5 % (42.8-82.8); PLATELET COUNT 281 10^3/uL (134-434); RBC 5.13 M/mm3 (3.60-5.2); RDW 14.3 % (11.6-15.6); WHITE BLOOD COUNT 4.7 K/mm3 (4.0-10.0)
[2022-02-27 14:18] LABS: CALCIUM 8.7 mg/dL (8.5-10.1)
[2022-02-27 14:19] LABS: ALBUMIN 3.6 g/dl (3.4-5.0)
[2022-02-27 14:22] LABS: CREATININE 0.7 mg/dL (0.55-1.3)
[2022-02-27 14:24] LABS: BILIRUBIN,TOTAL 0.6 mg/dL (0.2-1); TOT PROT 6.8 g/dl (6.4-8.2)
== END 2022-02-27 15:13 | disposition home or self-care (01) ==
LOC: JERFT 11:08
DX: K52.9 Noninfective gastroenteritis and colitis, unspecified (principal)
CPT/HCPCS: 36415; 80053; 85025; 99283-25; C9803-CS; U0003; U0005

== ENCOUNTER 2022-11-08 12:36 | Emergency (ER) | payer OTHER ==
[2022-11-08 12:54] VITALS: BP 162/85; PULSE 84; RESP 18; TEMP 97.5; BMI 39.1
[2022-11-08] MEDS ORDERED: DEXAMETHASONE SOD PHOSPHATE 10 MG/1 ML VIAL IM ONE (14:37)
[2022-11-08] MEDS ORDERED: ALBUTEROL SO4 2.5/IPRATROPIUM 0.5 INH SOL 3 ML VIAL.NEB. NEB ONE ×2 (14:37→14:40)
[2022-11-08] MEDS ORDERED: DEXAMETHASONE SOD PHOSPHATE 10 MG/1 ML VIAL ONE (14:40)
[2022-11-08 15:33] LABS: THROAT:GRP A STREP NOT DETECTED (NOTDETECTED)
== END 2022-11-08 15:44 | disposition home or self-care (01) ==
LOC: JERFT 12:36
PROC: 3E0F7GC Introduction of Other Therapeutic Substance into Respiratory Tract, Via Natural or Artificial Opening (ICD-10-PCS; principal; 2022-11-08)
PROC: 3E023GC Introduction of Other Therapeutic Substance into Muscle, Percutaneous Approach (ICD-10-PCS; 2022-11-08)
DX: J40 Bronchitis, not specified as acute or chronic (principal); R06.02 Shortness of breath; R50.9 Fever, unspecified; R51.9 Headache, unspecified; R11.0 Nausea; R63.0 Anorexia; R07.89 Other chest pain; Z20.822 Contact with and (suspected) exposure to COVID-19
CPT/HCPCS: 0241U-QW; 71046-TC-FY; 87651; 99284-25; J1100

== ENCOUNTER 2024-01-18 18:39 | Emergency (ER) | payer OTHER ==
[2024-01-18 19:12] VITALS: BP 130/73; PULSE 87; RESP 18; TEMP 98; BMI 36.6
[2024-01-18] MEDS ORDERED: FAMOTIDINE 10 MG/ML VIAL IVPB ONE (19:50)
[2024-01-18] MEDS ORDERED: ACETAMINOPHEN INJECTION 100 ML IVPB ONE (19:50)
[2024-01-18] MEDS: MAG HYDROX/AL HYDROX/SIMETH 30 ML UNIT-DOSE CUP PO ONE (20:21)
[2024-01-18] MEDS: FAMOTIDINE 20 MG/50 ML IVPB 20 MG/50 ML MG IVPB ONE (20:21)
[2024-01-18] MEDS: ACETAMINOPHEN 1000 MG/100 ML BAG IVPB ONE (20:21)
[2024-01-18 20:24] LABS: INR 1.04 (0.83-1.09); PROTHROMBIN TIME (PATIENT) 11.9 SEC (9.7-13.0)
[2024-01-18 20:26] LABS: ACTIVATED PTT 32.2 SECONDS (25.2-36.5)
[2024-01-18 20:27] LABS: BASO % 0.5 % (0-2.0); EOS % 2.1 % (0-4.5); HEMATOCRIT 41.7 % (32.4-45.2); HEMOGLOBIN 13.7 GM/dL (10.7-15.3); MCH 27.5 pg (25.7-33.7); MCHC 32.9 g/dl (32.0-36.0); MEAN CELL VOLUME 83.5 fl (80-96); MEAN PLT VOLUME 7.7 fl (7.5-11.1); MONO % 8.1 % (3.8-10.2); NEUT % 59.3 % (42.8-82.8); PLATELET COUNT 274 10^3/uL (134-434); RBC 4.99 M/mm3 (3.60-5.2); RDW 14.5 % (11.6-15.6); WHITE BLOOD COUNT 4.5 K/mm3 (4.0-10.0)
[2024-01-18 20:36] LABS: POTASSIUM 3.8 mmol/L (3.5-5.1)
[2024-01-18 20:38] LABS: CALCIUM 8.9 mg/dL (8.5-10.1)
[2024-01-18 20:39] LABS: ALBUMIN 3.6 g/dl (3.4-5.0)
[2024-01-18 20:43] LABS: BILIRUBIN,TOTAL 0.6 mg/dL (0.2-1); TOT PROT 6.5 g/dl (6.4-8.2)
[2024-01-18] MEDS: LACTULOSE 20 GM/30 ML UDC (FOR ORAL USE ONLY) PO ONE (21:33)
[2024-01-18] MEDS ORDERED: LACTULOSE 20 GM/30 ML UDC (FOR ORAL USE ONLY) ONE (21:36)
== END 2024-01-18 23:29 | disposition home or self-care (01) ==
LOC: JER 18:39
PROC: 3E033GC Introduction of Other Therapeutic Substance into Peripheral Vein, Percutaneous Approach (ICD-10-PCS; principal; 2024-01-18)
PROC: 3E033NZ Introduction of Analgesics, Hypnotics, Sedatives into Peripheral Vein, Percutaneous Approach (ICD-10-PCS; 2024-01-18)
DX: K59.00 Constipation, unspecified (principal); R10.31 Right lower quadrant pain; R14.0 Abdominal distension (gaseous); K92.1 Melena
CPT/HCPCS: 36415; 74019-TC-FY; 80053; 83605; 83690; 85025; 85610; 85730; 86850; 86900; 86901; 99284-25; J0131

== ENCOUNTER 2024-07-18 18:04 | Emergency (ER) | payer OTHER ==
[2024-07-18 18:12] VITALS: BP 169/100; PULSE 85; RESP 18; TEMP 97.6; BMI 36.6
[2024-07-18] MEDS ORDERED: ALBUTEROL SO4 2.5/IPRATROPIUM 0.5 INH SOL 3 ML VIAL.NEB. NEB ONE ×2 (19:10→20:20)
[2024-07-18] MEDS: ALBUTEROL SO4 2.5/IPRATROPIUM 0.5 INH SOL 3 ML VIAL.NEB. NEB ONE ×2 (19:11→20:23)
[2024-07-18 19:13] LABS: BASO % 0.3 % (0-2.0); EOS % 3.1 % (0-4.5); HEMATOCRIT 41.4 % (32.4-45.2); HEMOGLOBIN 13.9 GM/dL (10.7-15.3); LYMPH % 31.1 % (8-40); MCH 27.8 pg (25.7-33.7); MCHC 33.5 g/dl (32.0-36.0); MONO % 8.1 % (3.8-10.2); NEUT % 57.4 % (42.8-82.8); PLATELET COUNT 276 10^3/uL (134-434); RBC 4.98 M/mm3 (3.60-5.2); RDW 14.4 % (11.6-15.6); WHITE BLOOD COUNT 4.3 K/mm3 (4.0-10.0)
[2024-07-18 19:36] LABS: BLOOD UREA NITROGEN 14.1 mg/dL (7-18)
[2024-07-18 19:40] LABS: CREATININE 0.9 mg/dL (0.55-1.3)
[2024-07-18] MEDS ORDERED: predniSONE 20 MG TABLET (UD) ONE (20:20)
[2024-07-18] MEDS: predniSONE 20 MG TABLET (UD) PO ONE (20:23)
== END 2024-07-18 20:53 | disposition home or self-care (01) ==
LOC: JERFT 18:04
PROC: 3E0F7GC Introduction of Other Therapeutic Substance into Respiratory Tract, Via Natural or Artificial Opening (ICD-10-PCS; principal; 2024-07-18)
PROC: 3E0F7GC Introduction of Other Therapeutic Substance into Respiratory Tract, Via Natural or Artificial Opening (ICD-10-PCS; 2024-07-18)
DX: J45.901 Unspecified asthma with (acute) exacerbation (principal); J06.9 Acute upper respiratory infection, unspecified; R05.9 Cough, unspecified; M79.10 Myalgia, unspecified site; R68.83 Chills (without fever); R06.02 Shortness of breath; R07.89 Other chest pain; R53.81 Other malaise; R09.81 Nasal congestion; R09.82 Postnasal drip; Z20.822 Contact with and (suspected) exposure to COVID-19
CPT/HCPCS: 0241U-QW; 36415; 71046-TC-FY; 80048; 84484; 85025; 85379; 93005; 93010; 99285-25